=== PATIENT | female | born 1960 | race Caucasian/White ===

== ENCOUNTER → 2016-11-11 | Outpatient (CLI) | payer BC ==
[~2016-11-11] MED LIST: ATIVAN 0.50.5 MG/TAB PO; ATOXIMETIN-B1 CAP PO; CRANBERRY1 CAP PO; CYCLOBENZAPRINE5 MG PO; IRON1 CHI; LORTAB 5/500 501 TAB PO; NORCO 325 MG-51 TAB PO; PEROXICAM; PREDNISONE1 MG PO; ULTRAM 50MG TAB50 MG; VITAMIN C500 MG PO; ZOFRAN 4MG T4 MG/TAB PO; calcium
== END ==
LOC: MC.RAD 07:51
DX: Z12.31 Encounter for screening mammogram for malignant neoplasm of breast (principal)

== ENCOUNTER → 2017-01-16 | Outpatient (CLI) | payer BC | LOC: COL.RAD 09:28 | DX: Z01.818 Encounter for other preprocedural examination (principal); M17.12 Unilateral primary osteoarthritis, left knee ==

== ENCOUNTER → 2017-04-02 | Outpatient (CLI) | payer BC ==
[2017-04-02 12:38] LABS: BASO # 0.1 (0.0-0.2); EOS # 0.2 (0.0-0.7); EOS % 2.6 % (0-4.0); GRAN % 68.9 % (42.2-75.2); HEMATOCRIT 39.1 % (37.0-47.0); HEMOGLOBIN 12.7 g/dl (12.5-16.0); LYMPH # 1.7 (1.2-3.4); LYMPH % 22.8 % (20.0-51.0); MEAN CELL VOLUME 92 fl (80.0-100.0); MEAN CORPUSCULAR HEMOGLOBIN 30 pg (27.0-31.0); MEAN CORPUSCULAR HGB CONC 33 g/dl (33.0-37.0); MEAN PLATELET VOLUME 9.4 fl (7.4-10.4); MONO # 0.3 (0.1-0.6); MONO % 4.3 % (1.7-9.3); PLATELET COUNT 266 K/mm3 (130-400); RED BLOOD COUNT 4.24 M/mm3 (4.10-5.30); REDCELL DISTRIBUTION WIDTH-CV 12.7 % (11.5-14.5); WHITE BLOOD COUNT 7.3 K/mm3 (4.8-10.8)
[2017-04-02 12:49] LABS: ADJUSTED CALCIUM 8.9 mg/dL (8.4-10.2); ALBUMIN 4.6 gm/dL (3.5-5.0); CALCIUM 9.4 mg/dL (8.4-10.2); CREATININE, serum 0.82 mg/dL (0.52-1.25); POTASSIUM 4.3 mmol/L (3.4-5.0); TOTAL PROTEIN 7.4 gm/dL (6.4-8.2)
[2017-04-02 12:57] LABS: PROTHROMBIN TIME 11.5 SECONDS (9.7-12.8)
[2017-04-02 13:30] LABS: HIV 1/2 Antibodies Non-Reactive; HIV-1p24 Antigen Non-Reactive
== END ==
LOC: COL.LAB 10:05
PROVIDERS: Orthopaedic Surgery
DX: Z01.812 Encounter for preprocedural laboratory examination (principal); M17.12 Unilateral primary osteoarthritis, left knee

== ENCOUNTER → 2017-11-27 | Outpatient (CLI) | payer BC ==
[2017-11-27 08:43] LABS: HIV 1/2 Antibodies Non-Reactive; HIV-1p24 Antigen Non-Reactive
== END ==
LOC: COL.LAB 07:46
PROVIDERS: Orthopaedic Surgery
DX: Z01.812 Encounter for preprocedural laboratory examination (principal); M17.11 Unilateral primary osteoarthritis, right knee

== ENCOUNTER → 2018-08-07 | Outpatient (CLI) | payer BC ==
[2018-08-07 09:25] LABS: URIC ACID 5.4 mg/dL (2.5-6.2)
[2018-08-07 09:30] LABS: C-REACTIVE PROTEIN < 0.5 mg/dL (0.0-0.9)
[2018-08-08 02:14] LABS: RHEUMATOID FACTOR-SCREEN <15 IU/mL (0-29)
== END ==
LOC: COL.LAB 08:27
PROVIDERS: Orthopaedic Surgery Sports Medicine
DX: M25.542 Pain in joints of left hand (principal)

== ENCOUNTER → 2019-01-31 | Outpatient (CLI) | payer BC ==
[~2019-01-31] MED LIST changes: +LEVOXYL0.05 MG PO; +MOBIC15 MG PO; +ULTRAM 50MG TAB50 MG PO
[2019-01-31 15:57] LABS: HEMATOCRIT 37.3 % (37.0-47.0); HEMOGLOBIN 12.3 g/dl (12.5-16.0); MEAN CELL VOLUME 90 fl (80.0-100.0); MEAN CORPUSCULAR HEMOGLOBIN 30 pg (27.0-31.0); MEAN CORPUSCULAR HGB CONC 33 g/dl (33.0-37.0); MEAN PLATELET VOLUME 9.7 fl (7.4-10.4); PLATELET COUNT 237 K/mm3 (130-400); RED BLOOD COUNT 4.15 M/mm3 (4.10-5.30); REDCELL DISTRIBUTION WIDTH-CV 13.1 % (11.5-14.5)
[2019-01-31 16:29] LABS: ERYTHROCYTE SEDIMENTATION RATE 91 mm/hr (0-30)
== END ==
LOC: COL.LAB 15:04
PROVIDERS: Physician Assistant
DX: M25.561 Pain in right knee (principal)

== ENCOUNTER → 2019-02-04 | Outpatient (CLI) | payer BC ==
[~2019-02-04] VITALS: Ht 170.2 cm; Wt 70.1 kg
[2019-02-04 07:10] VITALS: BP 117/73; PULSE 106
--- NOTE | 2019-02-04 07:28 | NUR ---
pt leaves with staff for picc placement
[2019-02-04 09:08] VITALS: BP 101/62; PULSE 112
== END ==
LOC: COL.RAD 06:45
DX: Z45.2 Encounter for adjustment and management of vascular access device (principal); T84.53XA Infection and inflammatory reaction due to internal right knee prosthesis, initial encounter

== ENCOUNTER 2019-03-22 10:30 | Outpatient (RCR) | payer BC ==
[2019-02-07 07:21] VITALS: BP 102/59; PULSE 82; TEMP 98.4
[2019-02-08 07:42] VITALS: BP 95/53; PULSE 87; TEMP 98.4
[2019-02-09 07:30] VITALS: BP 113/75; BP 125/61; PULSE 63; PULSE 88; TEMP 97.8; TEMP 98
[2019-02-10 07:13] VITALS: BP 114/64; PULSE 87; TEMP 98.3
[2019-02-11 07:31] VITALS: BP 108/72; PULSE 90
[2019-02-12 07:07] VITALS: BP 101/59; PULSE 90; TEMP 98
[2019-02-13 07:30] VITALS: BP 114/69; PULSE 94; TEMP 98.3
--- NOTE | 2019-02-13 07:30 | NUR ---
Pt/spouse has concerns about her incision. is changing the dressing daily at home. Aquacel dressing was marked by this RN where the drainage was today. Will re-assess tomorrow. No odor present. Surrounding tissue eccymotic. Pt does not complain of pain at this time. encouraged to bring in old bandage to compare the amount of drainage since they change the dressings nightly after the pt's shower.
[2019-02-14 07:20] VITALS: BP 111/60; PULSE 99; TEMP 98.6
[2019-02-15 07:37] VITALS: BP 101/62; PULSE 93; TEMP 98.3
[2019-02-15 07:39] VITALS: BP 101/62; PULSE 93; TEMP 98.3
[2019-02-16 07:44] VITALS: BP 99/55; PULSE 90; TEMP 98.1
[2019-02-17 07:15] VITALS: BP 99/57; PULSE 91; TEMP 98.6
[2019-02-18 07:18] VITALS: BP 91/66; PULSE 93; TEMP 98.6
[2019-02-18 07:24] LABS: MEAN CELL VOLUME 90 fl (80.0-100.0); MEAN CORPUSCULAR HGB CONC 32 g/dl (33.0-37.0); MEAN PLATELET VOLUME 8.6 fl (7.4-10.4); PLATELET COUNT 313 K/mm3 (130-400); RED BLOOD COUNT 3.44 M/mm3 (4.10-5.30); REDCELL DISTRIBUTION WIDTH-CV 12.8 % (11.5-14.5)
[2019-02-18 07:29] LABS: HEMATOCRIT 30.9 % (37.0-47.0); HEMOGLOBIN 9.9 g/dl (12.5-16.0); MEAN CORPUSCULAR HEMOGLOBIN 29 pg (27.0-31.0)
[2019-02-18 07:48] LABS: ERYTHROCYTE SEDIMENTATION RATE 129 mm/hr (0-30)
[2019-02-19 07:15] VITALS: BP 101/62; PULSE 99; TEMP 98.4
[2019-02-20 08:57] VITALS: BP 101/59; PULSE 89; TEMP 98
[2019-02-21 07:32] VITALS: BP 106/67; PULSE 94; TEMP 98.7
[2019-02-22 08:31] VITALS: BP 138/79; BP 151/71; PULSE 113; PULSE 64; TEMP 97.4; TEMP 97.6
[2019-02-23 07:03] VITALS: BP 108/72; PULSE 101; TEMP 98.8
[2019-02-24 07:41] VITALS: BP 94/70; PULSE 103; TEMP 98.4
--- NOTE | 2019-02-24 08:00 | NUR ---
PICC intact right upper arm. With sterile technique right upper arm PICC dressing change done with insertion site cleansed with ChloraPrep 1, chlorhexidine impregnated disc applied, skin prep, StatLock, and Tegaderm applied. No signs or symptoms of IV complications noted. No concerns voiced. Arm wrapped with Quinn to protect catheter.
[2019-02-25 07:27] VITALS: BP 96/64; PULSE 103; TEMP 98.3
[2019-02-25 07:31] LABS: BASO # 0.1 (0.0-0.2); EOS # 0.5 (0.0-0.7); EOS % 8.8 % (0-4.0); GRAN % 58.4 % (42.2-75.2); LYMPH # 1.2 (1.2-3.4); LYMPH % 23.3 % (20.0-51.0); MEAN CELL VOLUME 88 fl (80.0-100.0); MEAN CORPUSCULAR HEMOGLOBIN 29 pg (27.0-31.0); MEAN CORPUSCULAR HGB CONC 33 g/dl (33.0-37.0); MEAN PLATELET VOLUME 8.9 fl (7.4-10.4); MONO # 0.4 (0.1-0.6); MONO % 8.1 % (1.7-9.3); PLATELET COUNT 347 K/mm3 (130-400); RED BLOOD COUNT 3.47 M/mm3 (4.10-5.30); REDCELL DISTRIBUTION WIDTH-CV 12.8 % (11.5-14.5)
[2019-02-25 07:32] LABS: HEMATOCRIT 30.4 % (37.0-47.0)
[2019-02-25 07:42] LABS: ALBUMIN 3.9 gm/dL (3.5-5.0); BILIRUBIN,TOTAL 1.4 mg/dL (0.0-1.0); CREATININE, serum 0.8 (0.52-1.25); TOTAL PROTEIN 7.9 gm/dL (6.4-8.2)
[2019-02-25 07:59] LABS: BILIRUBIN UNCONJUGATED 1.2 mg/dL (0.0-1.1); BILIRUBIN,DIRECT 0.1 mg/dL (0.0-0.4)
[2019-02-26 07:38] VITALS: BP 97/64; PULSE 106; TEMP 98
[2019-02-26 14:48] LABS: CK total - for Isoenzymes 48 U/L (26 - 192)
[2019-02-27 07:29] VITALS: BP 101/64; PULSE 96; TEMP 97.9
[2019-02-28 08:24] VITALS: BP 104/67; PULSE 95; TEMP 97.9
[2019-03-01 07:57] VITALS: BP 111/72; PULSE 103; TEMP 97.6
[2019-03-02 07:10] VITALS: BP 102/64; PULSE 92; TEMP 98.6
[2019-03-03 08:23] VITALS: BP 102/71; PULSE 92; TEMP 98.2
[2019-03-04 07:10] LABS: BASO # 0.1 (0.0-0.2); BASO % 1.3 % (0.0-2.0); EOS # 0.2 (0.0-0.7); EOS % 4.6 % (0-4.0); GRAN # 2.7 (1.4-6.5); LYMPH # 1.5 (1.2-3.4); LYMPH % 30.6 % (20.0-51.0); MEAN CELL VOLUME 90 fl (80.0-100.0); MEAN CORPUSCULAR HGB CONC 32 g/dl (33.0-37.0); MEAN PLATELET VOLUME 9.1 fl (7.4-10.4); MONO # 0.4 (0.1-0.6); MONO % 7.3 % (1.7-9.3); PLATELET COUNT 314 K/mm3 (130-400); RED BLOOD COUNT 3.42 M/mm3 (4.10-5.30); REDCELL DISTRIBUTION WIDTH-CV 13.2 % (11.5-14.5)
[2019-03-04 07:15] VITALS: BP 105/64; PULSE 104; TEMP 98.1
[2019-03-04 07:25] LABS: HEMATOCRIT 30.7 % (37.0-47.0); HEMOGLOBIN 9.9 g/dl (12.5-16.0); MEAN CORPUSCULAR HEMOGLOBIN 29 pg (27.0-31.0)
[2019-03-04 07:26] LABS: ALANINE AMINOTRANSFERASE < 6 U/L (9-52); ALBUMIN 3.9 gm/dL (3.5-5.0); ALKALINE PHOSPHATASE 118 U/L (50-136); AST,SGOT 24 U/L (15-37); BILIRUBIN,TOTAL 0.3 mg/dL (0.0-1.0); C-REACTIVE PROTEIN 2.3 mg/dL (0.0-0.9); CREATININE, serum 0.79 (0.52-1.25); TOTAL PROTEIN 7.6 gm/dL (6.4-8.2)
[2019-03-04 07:42] LABS: BILIRUBIN UNCONJUGATED 0.2 mg/dL (0.0-1.1); BILIRUBIN,DIRECT 0.1 mg/dL (0.0-0.4)
[2019-03-04 08:14] LABS: ERYTHROCYTE SEDIMENTATION RATE 1 mm/hr (0-30)
[2019-03-05 06:59] VITALS: BP 107/73; PULSE 95; TEMP 98.5
[2019-03-05 18:25] LABS: CK total - for Isoenzymes 49 U/L (26 - 192)
[2019-03-06 07:35] VITALS: BP 106/67; PULSE 96; TEMP 97.8
[2019-03-07 07:45] VITALS: BP 100/71; PULSE 105; TEMP 98.2
[2019-03-08 07:01] VITALS: BP 92/58; PULSE 74; TEMP 98.7
[2019-03-09 07:46] VITALS: BP 109/71; PULSE 76; TEMP 98.4
[2019-03-10 07:15] VITALS: BP 95/62; PULSE 95; TEMP 98.9
[2019-03-11 07:00] VITALS: BP 99/55; PULSE 99; TEMP 98.2
[2019-03-11 07:20] LABS: BASO # 0.1 (0.0-0.2); BASO % 1.4 % (0.0-2.0); EOS # 0.4 (0.0-0.7); EOS % 8.2 % (0-4.0); GRAN # 3.2 (1.4-6.5); GRAN % 65.2 % (42.2-75.2); HEMATOCRIT 30.4 % (37.0-47.0); HEMOGLOBIN 9.7 g/dl (12.5-16.0); LYMPH # 0.9 (1.2-3.4); LYMPH % 18.2 % (20.0-51.0); MEAN CELL VOLUME 89 fl (80.0-100.0); MEAN CORPUSCULAR HEMOGLOBIN 28 pg (27.0-31.0); MEAN CORPUSCULAR HGB CONC 32 g/dl (33.0-37.0); MEAN PLATELET VOLUME 9.1 fl (7.4-10.4); MONO # 0.3 (0.1-0.6); MONO % 6.6 % (1.7-9.3); PLATELET COUNT 271 K/mm3 (130-400); RED BLOOD COUNT 3.42 M/mm3 (4.10-5.30); REDCELL DISTRIBUTION WIDTH-CV 13.5 % (11.5-14.5)
[2019-03-11 07:40] LABS: ALBUMIN 3.9 gm/dL (3.5-5.0); BILIRUBIN,TOTAL 0.4 mg/dL (0.0-1.0); C-REACTIVE PROTEIN 3.8 mg/dL (0.0-0.9); CREATININE, serum 0.79 (0.52-1.25); TOTAL PROTEIN 7.3 gm/dL (6.4-8.2)
[2019-03-11 07:41] LABS: ERYTHROCYTE SEDIMENTATION RATE 111 mm/hr (0-30)
[2019-03-11 07:53] LABS: BILIRUBIN UNCONJUGATED 0.2 mg/dL (0.0-1.1); BILIRUBIN,DIRECT 0.1 mg/dL (0.0-0.4)
[2019-03-12 07:02] VITALS: BP 102/64; PULSE 94; TEMP 97.9
[2019-03-13 07:42] VITALS: BP 97/79; PULSE 95; TEMP 98.1
[2019-03-14 07:49] VITALS: BP 106/70; PULSE 95; TEMP 98.3
[2019-03-15 07:30] VITALS: BP 106/57; PULSE 95; TEMP 98.1
[2019-03-16 06:59] VITALS: BP 100/71; PULSE 97; TEMP 98.1
[2019-03-17 07:02] VITALS: BP 120/74; PULSE 86; TEMP 97.5
[2019-03-18 07:17] LABS: BASO # 0.1 (0.0-0.2); BASO % 1.3 % (0.0-2.0); EOS # 0.3 (0.0-0.7); EOS % 7.9 % (0-4.0); GRAN # 2.2 (1.4-6.5); GRAN % 57.8 % (42.2-75.2); LYMPH % 25.6 % (20.0-51.0); MEAN CELL VOLUME 89 fl (80.0-100.0); MEAN CORPUSCULAR HGB CONC 32 g/dl (33.0-37.0); MEAN PLATELET VOLUME 8.9 fl (7.4-10.4); MONO # 0.3 (0.1-0.6); MONO % 7.1 % (1.7-9.3); PLATELET COUNT 223 K/mm3 (130-400); REDCELL DISTRIBUTION WIDTH-CV 13.9 % (11.5-14.5)
[2019-03-18 07:19] LABS: HEMATOCRIT 30.3 % (37.0-47.0); HEMOGLOBIN 9.6 g/dl (12.5-16.0); MEAN CORPUSCULAR HEMOGLOBIN 28 pg (27.0-31.0)
[2019-03-18 07:30] LABS: ALBUMIN 3.9 gm/dL (3.5-5.0); BILIRUBIN,DIRECT 0.2 mg/dL (0.0-0.4); BILIRUBIN,TOTAL 0.3 mg/dL (0.0-1.0); CREATININE, serum 0.74 (0.52-1.25); TOTAL PROTEIN 7.4 gm/dL (6.4-8.2)
[2019-03-18 07:43] LABS: ERYTHROCYTE SEDIMENTATION RATE 83 mm/hr (0-30)
[2019-03-18 07:47] LABS: C-REACTIVE PROTEIN 1.7 mg/dL (0.0-0.9)
[2019-03-18 08:02] VITALS: BP 104/66; PULSE 56; TEMP 97.9
[2019-03-19 07:05] VITALS: BP 108/72; PULSE 90; TEMP 98.2
[2019-03-20 07:42] VITALS: BP 103/72; PULSE 98; TEMP 98.5
[~2019-03-22] VITALS: Ht 170.2 cm; Wt 81.1 kg
[~2019-03-22 10:30] MED LIST changes: +CUBICIN 500MG500 MG IV; +RIFADIN300 MG PO
[2019-03-22 11:19] VITALS: BP 133/76; PULSE 65; TEMP 98
== END 2019-03-26 10:39 | disposition home or self-care (01) ==
LOC: EUO 10:30
PROVIDERS: Internal Medicine Infectious Disease; Orthopaedic Surgery
DX: T84.53XD Infection and inflammatory reaction due to internal right knee prosthesis, subsequent encounter (principal); Z98.890 Other specified postprocedural states
CPT/HCPCS: J0878

== ENCOUNTER → 2020-01-12 | Outpatient (CLI) | payer BC | LOC: COL.RAD 08:32 | DX: M71.21 Synovial cyst of popliteal space [Baker], right knee (principal); Z96.659 Presence of unspecified artificial knee joint ==

== ENCOUNTER → 2020-03-16 | Outpatient (CLI) | payer BC | LOC: COL.RAD | DX: R68.81 Early satiety (principal) | CPT/HCPCS: A9541 ==

== ENCOUNTER 2020-04-10 08:30 | Outpatient (RCR) | payer BC ==
[2020-03-30 10:47] VITALS: BP 115/74; PULSE 96; TEMP 98.5
--- NOTE | 2020-04-06 08:30 | NUR ---
here for cares. PICC intact right upper arm. PICC dressing change done with sterile technique. Insertion site cleansed with ChloraPrep 1, chlorhexidine impregnated disc applied, skin prep, StatLock, and Tegaderm applied. No signs or symptoms of IV complications noted. No concerns voiced. Arm wrapped with Quinn to protect catheter. Patient to return for cares next Friday. Patient voiced understanding of instructions.
[2020-04-06 08:39] VITALS: BP 111/57; PULSE 91; TEMP 98
[~2020-04-10] VITALS: Ht 170.2 cm; Wt 71.3 kg
[~2020-04-10 08:30] MED LIST changes: +BACTRIM DS 8001 TAB PO; +CALCIUM 600MG+D1 TAB PO; +FOLIC ACID 40400 MCG PO; +NATURAL IRON65 MG PO; +PRILOSEC 20MG20 MG PO; +[UNRECOGNIZED DRUG - CODE] IV
--- NOTE | 2020-04-10 08:30 | NUR ---
here for cares. Right upper arm PICC intact. Sterile dressing change done with insertion site cleansed with ChloraPrep 1, chlorhexidine impregnated disc applied, skin prep, StatLock, and Tegaderm applied. No signs or symptoms of IV complications noted. No concerns voiced. Arm wrapped with Quinn to protect catheter. Patient return to express unit is scheduled for cares. Patient voiced understanding of instructions.
[2020-04-10 08:41] VITALS: BP 127/75; PULSE 88; TEMP 98.4
[2020-04-10 09:07] LABS: BASO % 0.7 % (0.0-2.0); EOS # 0.3 (0.0-0.7); EOS % 5.5 % (0-4.0); GRAN # 2.9 (1.4-6.5); GRAN % 63.5 % (42.2-75.2); LYMPH % 21.2 % (20.0-51.0); MEAN CELL VOLUME 86 fl (80.0-100.0); MEAN CORPUSCULAR HGB CONC 31 g/dl (33.0-37.0); MEAN PLATELET VOLUME 8.6 fl (7.4-10.4); MONO # 0.4 (0.1-0.6); MONO % 8.4 % (1.7-9.3); PLATELET COUNT 293 K/mm3 (130-400); RED BLOOD COUNT 3.03 M/mm3 (4.10-5.30); REDCELL DISTRIBUTION WIDTH-CV 17.5 % (11.5-14.5)
[2020-04-10 09:09] LABS: MEAN CORPUSCULAR HEMOGLOBIN 26 pg (27.0-31.0)
[2020-04-10 09:18] LABS: ALBUMIN 3.3 gm/dL (3.5-5.0); BILIRUBIN UNCONJUGATED 0.9 mg/dL (0.0-1.1); BILIRUBIN,DIRECT 0.7 mg/dL (0.0-0.4); BILIRUBIN,TOTAL 1.7 mg/dL (0.0-1.0); CREATININE, serum 1.09 (0.52-1.25); TOTAL PROTEIN 6.1 gm/dL (6.4-8.2)
[2020-04-10 09:52] LABS: ERYTHROCYTE SEDIMENTATION RATE 69 mm/hr (0-30)
[2020-04-10 09:54] LABS: C-REACTIVE PROTEIN 1.9 mg/dL (0.0-0.9)
[2020-05-08] MEDS ORDERED: MAXIPIME1 GM IV (13:39)
[2020-05-08] MEDS ORDERED: RIFADIN300 MG PO (14:26)
[2020-05-08] MEDS ORDERED: NAFCIL1 GM IV (14:26)
== END 2020-04-13 10:56 | disposition still patient (30) ==
LOC: EUO 08:30
PROVIDERS: Internal Medicine Infectious Disease
DX: Z45.2 Encounter for adjustment and management of vascular access device (principal); Z79.2 Long term (current) use of antibiotics
CPT/HCPCS: C1751

== ENCOUNTER 2020-05-15 08:30 | Outpatient (RCR) | payer BC ==
--- NOTE | 2020-04-17 08:30 | NUR ---
here for cares. Right upper arm PICC dressing change done with insertion site cleansed with ChloraPrep 1, chlorhexidine impregnated disc applied, skin prep, StatLock, and Tegaderm applied. No signs or symptoms of IV complications noted. No concerns voiced. Patient return next week for cares. Patient voiced understanding of instructions.
[2020-04-17 08:56] VITALS: BP 146/79; PULSE 92; TEMP 98.2
[2020-04-17 09:05] LABS: EOS # 0.2 (0.0-0.7); EOS % 5.4 % (0-4.0); GRAN # 2.6 (1.4-6.5); GRAN % 67.3 % (42.2-75.2); LYMPH # 0.8 (1.2-3.4); LYMPH % 19.3 % (20.0-51.0); MEAN CELL VOLUME 87 fl (80.0-100.0); MEAN CORPUSCULAR HGB CONC 31 g/dl (33.0-37.0); MEAN PLATELET VOLUME 8.6 fl (7.4-10.4); MONO # 0.3 (0.1-0.6); MONO % 6.7 % (1.7-9.3); PLATELET COUNT 230 K/mm3 (130-400); RED BLOOD COUNT 2.84 M/mm3 (4.10-5.30); REDCELL DISTRIBUTION WIDTH-CV 21.1 % (11.5-14.5)
[2020-04-17 09:07] LABS: HEMATOCRIT 24.8 % (37.0-47.0); HEMOGLOBIN 7.7 g/dl (12.5-16.0); MEAN CORPUSCULAR HEMOGLOBIN 27 pg (27.0-31.0)
[2020-04-17 09:19] LABS: ALBUMIN 3.3 gm/dL (3.5-5.0); C-REACTIVE PROTEIN 0.7 mg/dL (0.0-0.9); CREATININE, serum 0.98 (0.52-1.25); TOTAL PROTEIN 6.3 gm/dL (6.4-8.2)
[2020-04-17 09:30] LABS: ERYTHROCYTE SEDIMENTATION RATE 61 mm/hr (0-30)
[2020-04-17 09:44] LABS: POTASSIUM 2.7 mmol/L (3.4-5.0)
[2020-04-17 09:57] LABS: BILIRUBIN,TOTAL 1.1 mg/dL (0.0-1.0)
[2020-04-17 09:58] LABS: BILIRUBIN UNCONJUGATED 0.6 mg/dL (0.0-1.1); BILIRUBIN,DIRECT 0.5 mg/dL (0.0-0.4)
--- NOTE | 2020-04-24 08:45 | NUR ---
here for cares. With sterile technique right upper arm PICC dressing change done insertion site cleansed with ChloraPrep 1, chlorhexidine impregnated disc applied, skin prep, StatLock, and Tegaderm applied. No signs or symptoms of IV complications noted. No concerns voiced. Arm wrapped with Quinn to protect catheter. Patient to return as scheduled for cares in the express unit. Patient voiced understanding of instructions.
[2020-04-24 09:07] VITALS: BP 121/78; PULSE 92; TEMP 98.3
[2020-04-24 09:20] LABS: MEAN CELL VOLUME 89 fl (80.0-100.0); MEAN CORPUSCULAR HGB CONC 32 g/dl (33.0-37.0); MEAN PLATELET VOLUME 8.7 fl (7.4-10.4); PLATELET COUNT 215 K/mm3 (130-400); RED BLOOD COUNT 3.23 M/mm3 (4.10-5.30); REDCELL DISTRIBUTION WIDTH-CV 22.8 % (11.5-14.5)
[2020-04-24 09:35] LABS: ALBUMIN 3.8 gm/dL (3.5-5.0); BILIRUBIN,TOTAL 1.3 mg/dL (0.0-1.0); C-REACTIVE PROTEIN 0.7 mg/dL (0.0-0.9); CREATININE, serum 0.98 (0.52-1.25); POTASSIUM 3.7 mmol/L (3.4-5.0); TOTAL PROTEIN 7.1 gm/dL (6.4-8.2)
[2020-04-24 09:44] LABS: BILIRUBIN UNCONJUGATED 0.6 mg/dL (0.0-1.1); BILIRUBIN,DIRECT 0.6 mg/dL (0.0-0.4)
[2020-04-24 09:49] LABS: HEMATOCRIT 28.8 % (37.0-47.0); HEMOGLOBIN 9.1 g/dl (12.5-16.0); MEAN CORPUSCULAR HEMOGLOBIN 28 pg (27.0-31.0)
[2020-04-24 11:07] LABS: BAND 4 % (0-10); BASOPHIL 2 % (0-2); EOSINOPHIL 8 % (0-4); ERYTHROCYTE SEDIMENTATION RATE 63 mm/hr (0-30); LYMPHOCYTE 18 % (20.0-51.0); NEUTROPHILS 56 % (42.0-75.2); OVALOCYTES 1+; PLATELET ESTIMATE NORMAL (NORMAL)
--- NOTE | 2020-05-01 08:30 | NUR ---
here for cares. PICC intact right upper arm. Sterile dressing change done with insertion site cleansed with ChloraPrep 1, chlorhexidine impregnated disc applied, skin prep, StatLock, and Tegaderm applied. No signs or symptoms of IV complications noted. No concerns voiced. Arm wrapped with Quinn to protect catheter. Patient to return next week for cares. Patient voiced understanding of instructions.
[2020-05-01 08:52] VITALS: BP 102/58; PULSE 98; TEMP 98.9
[2020-05-01 09:01] LABS: BASO # 0.1 (0.0-0.2); BASO % 2.2 % (0.0-2.0); EOS # 0.5 (0.0-0.7); EOS % 16.2 % (0-4.0); GRAN # 1.8 (1.4-6.5); GRAN % 57.5 % (42.2-75.2); LYMPH # 0.5 (1.2-3.4); LYMPH % 16.2 % (20.0-51.0); MEAN CELL VOLUME 91 fl (80.0-100.0); MEAN CORPUSCULAR HGB CONC 31 g/dl (33.0-37.0); MONO # 0.2 (0.1-0.6); MONO % 7.6 % (1.7-9.3); PLATELET COUNT 197 K/mm3 (130-400); REDCELL DISTRIBUTION WIDTH-CV 21.6 % (11.5-14.5)
[2020-05-01 09:05] LABS: HEMATOCRIT 30.1 % (37.0-47.0); HEMOGLOBIN 9.3 g/dl (12.5-16.0); MEAN CORPUSCULAR HEMOGLOBIN 28 pg (27.0-31.0)
[2020-05-01 09:08] LABS: ALANINE AMINOTRANSFERASE 34 U/L (4-34); ALBUMIN 3.9 gm/dL (3.5-5.0); ALKALINE PHOSPHATASE 109 U/L (50-136); AST,SGOT 36 U/L (15-37); BILIRUBIN UNCONJUGATED 0.6 mg/dL (0.0-1.1); BILIRUBIN,DIRECT 0.8 mg/dL (0.0-0.4); BILIRUBIN,TOTAL 1.3 mg/dL (0.0-1.0); CREATININE, serum 1.02 (0.52-1.25); POTASSIUM 3.5 mmol/L (3.4-5.0)
[2020-05-01 09:37] LABS: ERYTHROCYTE SEDIMENTATION RATE 34 mm/hr (0-30)
[2020-05-01 09:43] LABS: C-REACTIVE PROTEIN < 0.5 mg/dL (0.0-0.9)
[2020-05-08 08:35] VITALS: BP 97/50; PULSE 87; TEMP 98.2
--- NOTE | 2020-05-08 08:45 | NUR ---
here for cares. PICC intact right upper arm. Insertion site cleansed with ChloraPrep 1, chlorhexidine impregnated disc applied, skin prep, StatLock, and Tegaderm applieNo signs or symptoms of IV complications noted. No concerns voiced. Arm wrapped with Quinn to protect catheter. Patient to continue with PICC care nurse in the express unit as scheduled. Patient voiced understanding of instructions.
[2020-05-08 08:50] LABS: BASO # 0.1 (0.0-0.2); BASO % 1.7 % (0.0-2.0); EOS # 0.4 (0.0-0.7); EOS % 12.2 % (0-4.0); GRAN # 1.7 (1.4-6.5); GRAN % 58.2 % (42.2-75.2); LYMPH # 0.6 (1.2-3.4); LYMPH % 20.1 % (20.0-51.0); MEAN CELL VOLUME 90 fl (80.0-100.0); MEAN CORPUSCULAR HGB CONC 32 g/dl (33.0-37.0); MEAN PLATELET VOLUME 8.7 fl (7.4-10.4); MONO # 0.2 (0.1-0.6); MONO % 7.5 % (1.7-9.3); PLATELET COUNT 182 K/mm3 (130-400); RED BLOOD COUNT 3.41 M/mm3 (4.10-5.30); REDCELL DISTRIBUTION WIDTH-CV 20.6 % (11.5-14.5)
[2020-05-08 08:51] LABS: HEMATOCRIT 30.8 % (37.0-47.0); HEMOGLOBIN 9.8 g/dl (12.5-16.0); MEAN CORPUSCULAR HEMOGLOBIN 29 pg (27.0-31.0)
[2020-05-08 09:02] LABS: ALANINE AMINOTRANSFERASE 50 U/L (4-34); ALBUMIN 3.9 gm/dL (3.5-5.0); ALKALINE PHOSPHATASE 109 U/L (50-136); AST,SGOT 43 U/L (15-37); BILIRUBIN UNCONJUGATED 0.6 mg/dL (0.0-1.1); BILIRUBIN,DIRECT 0.8 mg/dL (0.0-0.4); BILIRUBIN,TOTAL 1.4 mg/dL (0.0-1.0); CREATININE, serum 1.05 (0.52-1.25); POTASSIUM 3.6 mmol/L (3.4-5.0); TOTAL PROTEIN 7.1 gm/dL (6.4-8.2)
[2020-05-08 09:17] LABS: ERYTHROCYTE SEDIMENTATION RATE 20 mm/hr (0-30)
[2020-05-08 09:18] LABS: C-REACTIVE PROTEIN < 0.5 mg/dL (0.0-0.9)
[~2020-05-15] VITALS: Ht 170.2 cm; Wt 67.2 kg
[~2020-05-15 08:30] MED LIST changes: +MAXIPIME1 GM IV; +NAFCIL1 GM IV
--- NOTE | 2020-05-15 08:30 | NUR ---
PICC intact right upper arm with sterile dressing change done with insertion site cleansed with chloraprep x 1, chlorhexidine impregnated disk applied, skin prep, stat lock, and tegaderm applied. no signs or symptoms of IV complications noted. no concerns voiced. re-wrapped with an gisella to protect catheter. to return for cares as schedulded. voiced understanding of instructions.
[2020-05-15 08:49] LABS: BASO # 0.1 (0.0-0.2); BASO % 2.4 % (0.0-2.0); EOS # 0.4 (0.0-0.7); EOS % 13.5 % (0-4.0); GRAN # 1.7 (1.4-6.5); GRAN % 58.1 % (42.2-75.2); LYMPH # 0.5 (1.2-3.4); MEAN CELL VOLUME 90 fl (80.0-100.0); MEAN CORPUSCULAR HGB CONC 32 g/dl (33.0-37.0); MEAN PLATELET VOLUME 8.7 fl (7.4-10.4); MONO # 0.3 (0.1-0.6); MONO % 8.7 % (1.7-9.3); PLATELET COUNT 191 K/mm3 (130-400); RED BLOOD COUNT 3.41 M/mm3 (4.10-5.30); REDCELL DISTRIBUTION WIDTH-CV 19.9 % (11.5-14.5)
[2020-05-15 08:50] VITALS: BP 108/73; PULSE 84; TEMP 98.1
[2020-05-15 09:00] LABS: HEMATOCRIT 30.8 % (37.0-47.0); HEMOGLOBIN 9.9 g/dl (12.5-16.0); MEAN CORPUSCULAR HEMOGLOBIN 29 pg (27.0-31.0)
[2020-05-15 09:10] LABS: ALANINE AMINOTRANSFERASE 65 U/L (4-34); ALKALINE PHOSPHATASE 95 U/L (50-136); AST,SGOT 50 U/L (15-37); BILIRUBIN,TOTAL 1.5 mg/dL (0.0-1.0); CREATININE, serum 1.14 (0.52-1.25); TOTAL PROTEIN 7.3 gm/dL (6.4-8.2)
[2020-05-15 09:17] LABS: C-REACTIVE PROTEIN < 0.5 mg/dL (0.0-0.9)
[2020-05-15 09:24] LABS: BILIRUBIN UNCONJUGATED 0.4 mg/dL (0.0-1.1)
[2020-05-15 11:11] LABS: ERYTHROCYTE SEDIMENTATION RATE 18 mm/hr (0-30)
== END 2020-05-22 08:30 | disposition home or self-care (01) ==
LOC: EUO 08:30
PROVIDERS: Internal Medicine Infectious Disease; Orthopaedic Surgery
DX: Z01.818 Encounter for other preprocedural examination (principal); T84.53XD Infection and inflammatory reaction due to internal right knee prosthesis, subsequent encounter